=== PATIENT | female | born 1980 | race Caucasian/White ===

== ENCOUNTER 2023-09-14 14:06 | Emergency (ER) | payer BC ==
--- OUTSIDE RECORDS SUMMARY | 2023-09-14 14:08 | XMS REPORT | Continuity of Care Document ---
Author Name Unknown Address [address] [place] [address] [facility] thconnect Address 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 Role Phone Sravan Avilez Primary Care Physician + [phone] CHRETIEN_F Attending Clinician Unavailable Xu Lunsford Attending Clinician [phone] WATERS_S Attending Clinician Unavailable Magda Peña Attending Clinician [phone] Doctor Unassigned, [place] Attending Clinician U Pedro Crockett MD Attending Clinician [phone] PEDRO MEZA Attending Clinician Unavailable Marlee Scherer MA Attending Clinician Unavailsydney DORMAN Attending Clinician Unavailable Sheela Spears Attending Clinician [phone] Sukh Gutierrez MD Attending Clinician + [phone] SUKH GUTIERREZ Attending Clinician Young WILSON_F Admitting Clinician Unavailable WATERS_S Admitting Clinician Unavailable LAKIA Admitting Clinician Unavailable SUKH GUTIERREZ Admitting Clinician Young rucker Payers Payer Name Policy Type Policy Number Effective Date Expirati on Date Source [place] [id number] 2018 00:00:00 Problems Condition Name Condition Details Condition Category Status Onset Date Resolution Date Last Treatment Date Treating Clinician Comments Source Acute sinusitis Acute Sinusitis Problem Active 05-19 00:00: 00 [facility] Anxiety Anxiety Problem Active 10-15 00:00: 00 [facility] Transient hypertensi on Transient Hypertensi on Problem Active 10[facility]15 [facility] Herpes simplex Herpes Simplex Problem Active 09-14 00:00: 00 [facility] Multiple sclerosis Multiple Sclerosis Problem Active 09[facility]14 [facility] Chronic interstiti al cystitis Chronic Interstiti al Cystitis Problem Active 09-14 [facility]00[facility] [address] [facility] Demyelinat ing disease of central nervous system, unspecifie d Demyelinat ing disease of central nervous system, unspecifie d Disease Active 10-07 00:00: 00 [facility] Disturbanc e of skin sensation Disturbanc e of skin sensation Disease Active 10-07 00:00: 00 [facility] Neurogenic bladder Neurogenic bladder Disease Active 10-07 00:00: 00 [facility] Allergies, Adverse Reactions, Alerts Allergy Name Allergy Type Status Severity Reaction(s) Onset Date Inactive Date Treating Clinician Comments Source CLINDAMY ALAN DRUG INGREDI Active High Other-Cmnt 2020-05 00:00: 00 [facility] Clindamy alan Drug Allergy Active Other - See comments 2020-05 00:00: 00 Facial swelling [facility] NITROFUR ANTOIN DRUG INGREDI Active Unknown-Cmnt 10-25 00:00: 00 [facility] Nitrofur antoin Propensi ty to adverse reaction s Active Unknown - See comments 10-25 00:00: 00 Makes joints hurts, very nauseated , and extremely bloated, sometimes dizziness . [facility] Clindamy alan Allergy to substanc e Active Moderate to severe Facial swelling [facility] Social History Social Habit Start Date Stop Date Quantity Comments Source Alcohol intake 2021-04-06 00:00:00 2021-04-06 00:00:00 Ex-drinker (finding) [facility] Tobacco use and exposure 2021-04-03 00:00:00 2021-04-03 00:00:00 Never used [facility] Sex Assigned At 1980 00:00:00 1980 00:00:00 [facility] Smoking Status Start Date Stop Date Source Never smoker [facility] Medications Ordered Medication Name Filled Medication Name Start Date Stop Date Current Medication? Ordering Clinician Indication Dosage Frequency Signature (SIG) Comments Components Source Cholecalcif shanelle, Vitamin D3, 125 mcg (5,000 unit) capsule 2020-05 15:14: 13 Yes Take by mouth. [facility] vitamin C 100 mg tablet 2020-05 15:14: 13 Yes Take by mouth. [facility] ZINC SULFATE ORAL 2020-05 15:14: 13 Yes Take by mouth. [facility] Lisa Allergy Lisa Allergy No Lisa Allergy [facility] cefdinir 250 mg/5 mL oral suspension Take 6 mL twice a day by oral route as directed for 7 days. cefdinir 250 mg/5 mL oral suspension Take 6 mL twice a day by oral route as directed for 7 days. No 6mL BID cefdinir 250 mg/5 mL oral suspension Take 6 mL twice a day by oral route as directed for 7 days. [facility] Medrol (Brian) 4 mg tablets in a dose pack Take 1 dose pk by oral route as directed for 6 days. Medrol (Brian) 4 mg tablets in a dose pack Take 1 dose pk by oral route as directed for 6 days. No 1dose pk(s) Medrol (Brian) 4 mg tablets in a dose pack Take 1 dose pk by oral route as directed for 6 days. [facility] multivitami n multivitami n No multivitam in [facility] Vitamin D3 Vitamin D3 No Vitamin D3 [facility] diclofenac 1 % topical gel APPLY 2 GRAMS TO THE AFFECTED AREA(S) BY TOPICAL ROUTE 4 TIMES PER DAY diclofenac 1 % topical gel APPLY 2 GRAMS TO THE AFFECTED AREA(S) BY TOPICAL ROUTE 4 TIMES PER DAY No diclofenac 1 % topical gel APPLY 2 GRAMS TO THE AFFECTED AREA(S) BY TOPICAL ROUTE 4 TIMES PER DAY [facility] propranolol 20 mg tablet Take 1 tablet 3 times a day by oral route as needed. propranolol 20 mg tablet Take 1 tablet 3 times a day by oral route as needed. No 1 TID propranolo l 20 mg tablet Take 1 tablet 3 times a day by oral route as needed. [facility] Lisa Allergy Lisa Allergy No Lisa Allergy [facility] Augmentin 250 mg-62.5 mg/5 mL oral suspension Take 10 mL every 8 hours by oral route for 10 days. Augmentin 250 mg-62.5 mg/5 mL oral suspension Take 10 mL every 8 hours by oral route for 10 days. No 10mL Q8H Augmentin 250 mg-62.5 mg/5 mL oral suspension Take 10 mL every 8 hours by oral route for 10 days. [facility] multivitami n multivitami n No multivitam in [facility] omeprazole 40 mg capsule,del ayed release TAKE 1 CAPSULE BY MOUTH DAILY 30 MINUTES BEFORE MORNING MEAL NEEDED omeprazole 40 mg capsule,del ayed release TAKE 1 CAPSULE BY MOUTH DAILY 30 MINUTES BEFORE MORNING MEAL NEEDED No omeprazole 40 mg capsule,de layed release TAKE 1 CAPSULE BY MOUTH DAILY 30 MINUTES BEFORE MORNING MEAL NEEDED [facility] Vitamin D3 Vitamin D3 No Vitamin D3 [facility] Wegovy 0.25 mg/0.5 mL subcutaneou s pen injector Wegovy 0.25 mg/0.5 mL subcutaneou s pen injector No Wegovy 0.25 mg/0.5 mL subcutaneo us pen injector [facility] Immunizations Ordered Immunization Name Filled Immunization Name Date Status Comments Source SARS-COV-2 COVID-19 UNSPECIFIED VACCINE 2020-06-21 00:00:00 Completed [facility] SARS-COV-2 COVID-19 UNSPECIFIED VACCINE 2020-06-21 00:00:00 Completed [facility] SARS-COV-2 COVID-19 UNSPECIFIED VACCINE 2020-06-21 00:00:00 Completed [facility] SARS-COV-2 COVID-19 UNSPECIFIED VACCINE 2020-06-21 00:00:00 Completed [facility] SARS-COV-2 COVID-19 UNSPECIFIED VACCINE 2020-06-21 00:00:00 Completed [facility] SARS-COV-2 (COVID-19) vaccine, UNSPECIFIED SARS-COV-2 (COVID-19) vaccine, UNSPECIFIED 2020-06-21 00:00:00 Completed [facility] COVID-19 (SARS-COV-2) vaccine, unspecified COVID-19 (SARS-COV-2) vaccine, unspecified 2020-06-21 00:00:00 Completed [facility] COVID-19 (SARS-COV-2) vaccine, unspecified COVID-19 (SARS-COV-2) vaccine, unspecified 2020-06-21 00:00:00 Completed [facility] SARS-COV-2 COVID-19 UNSPECIFIED VACCINE 2020-05-21 00:00:00 Completed [facility] SARS-COV-2 COVID-19 UNSPECIFIED VACCINE 2020-05-21 00:00:00 Completed [facility] SARS-COV-2 COVID-19 UNSPECIFIED VACCINE 2020-05-21 00:00:00 Completed [facility] SARS-COV-2 COVID-19 UNSPECIFIED VACCINE 2020-05-21 00:00:00 Completed [facility] SARS-COV-2 COVID-19 UNSPECIFIED VACCINE 2020-05-21 00:00:00 Completed [facility] SARS-COV-2 (COVID-19) vaccine, UNSPECIFIED SARS-COV-2 (COVID-19) vaccine, UNSPECIFIED 2020-05-21 00:00:00 Completed [facility] COVID-19 (SARS-COV-2) vaccine, unspecified COVID-19 (SARS-COV-2) vaccine, unspecified 2020-05-21 00:00:00 Completed [facility] COVID-19 (SARS-COV-2) vaccine, unspecified COVID-19 (SARS-COV-2) vaccine, unspecified 2020-05-21 00:00:00 Completed [facility] COVID-19 (SARS-COV-2) vaccine, unspecified COVID-19 (SARS-COV-2) vaccine, unspecified Unknown Completed [facility] COVID-19 (SARS-COV-2) vaccine, unspecified COVID-19 (SARS-COV-2) vaccine, unspecified Unknown Completed [facility] Vital Signs Vital Name Observation Time Observation Value Comments S ource BP Diastolic 2023-05-19 00:00:00 84 mm[Hg] [facility] BP Systolic 2023-05-19 00:00:00 123 mm[Hg] [facility] Body Weight 2023-05-19 00:00:00 2780.8 [oz_av] [facility] BP Diastolic 2021-10-15 00:00:00 91 mm[Hg] [facility] Height 2021-10-15 00:00:00 66 [in_i] [facility] BMI (Body Mass Index) 2021-10-15 00:00:00 28.8 kg/m2 [facility] BP Systolic 2021-10-15 00:00:00 132 mm[Hg] [facility] Body Weight 2021-10-15 00:00:00 2857.6 [oz_av] [facility] BP Diastolic 2021-07-23 00:00:00 83 mm[Hg] [facility] Height 2021-07-23 00:00:00 66 [in_i] [facility] BMI (Body Mass Index) 2021-07-23 00:00:00 29.5 kg/m2 [facility] BP Systolic 2021-07-23 00:00:00 137 mm[Hg] [facility] Body Weight 2021-07-23 00:00:00 2924.8 [oz_av] [facility] Systolic blood pressure 2021-04-03 21:08:00 119 mm[Hg] [facility] Diastolic blood pressure 2021-04-03 21:08:00 82 mm[Hg] [facility] Heart rate 2021-04-03 21:08:00 71 /min [facility] Body temperature 2021-04-03 21:08:00 36.61 Karlene [facility] Respiratory rate 2021-04-03 21:08:00 18 /min [facility] Body height 2021-04-03 21:08:00 167.6 cm [facility] Body weight 2021-04-03 21:08:00 77.066 kg [facility] BMI 2021-04-03 21:08:00 27.42 kg/m2 [facility] BP Diastolic 2021-01-22 00:00:00 83 mm[Hg] [facility] Height 2021-01-22 00:00:00 66 [in_i] [facility] BMI (Body Mass Index) 2021-01-22 00:00:00 29.4 kg/m2 [facility] BP Systolic 2021-01-22 00:00:00 125 mm[Hg] [facility] Body Weight 2021-01-22 00:00:00 2918.4 [oz_av] [facility] Procedures Procedure Date / Time Performed Performing Clinicia n Source EXTERNAL PROVIDER RECORDS 2021-05-06 06:01:00 Doctor Unassigned, [place] [facility] EXTERNAL PROVIDER RECORDS 2021-04-21 06:01:00 Doctor Unassigned, [place] [facility] HIGH RISK HPV-THIN PREP 2021-04-03 21:54:00 Pedro Meza [facility] PAP SMEAR-LIQUID BASED-CP 2021-04-03 21:54:00 Pedro Meza [facility] Bilateral Tubal Ligation [facility] Section [facility] Ligation of Bilateral Fallopian Tubes [facility] Plan of Care Planned Activity Planned Date Details Comments Source Instructions [facility] Encounters Start Date/Time End Date/Time Encounter Type Admission Type Attending Clinicians Care Facility Care Department Encounter ID Source 2023-05-19 00:00:00 2023-05-19 00:00:00 Outpatient CHRETIEN_F [facility] [id number] [facility] 2023-05-19 00:00:00 2023-05-19 00:00:00 Rebeca GermanstanleyayshaPAMN-ANNUAL GIVING DIRECTOR-B C: [address], [address] [facility], [place] [address] , Ph. [facility] [id number] [facility] 2021-10-15 00:00:00 2021-10-15 00:00:00 Outpatient CHRETIEN_F [facility] [id number] [facility] 2021-10-15 00:00:00 2021-10-15 00:00:00 Outpatient Xu Lunsford [facility] [id number] 2021-10-15 00:00:00 2021-10-15 00:00:00 Xu Lunsford, DO: [address], [address] [place] [phone] , Ph. [facility] [id number] [facility] 2021-07-23 05:58:00 2021-07-23 05:58:00 Outpatient WATERS_S [facility] [id number] [facility] 2021-07-23 00:00:00 2021-07-23 00:00:00 Outpatient Magda Peña [facility] [id number] 2021-07-23 00:00:00 2021-07-23 00:00:00 Magda Peña APRN-SATURATOR-C: [address], [address] [place] [phone] , Ph. [facility] [id number] [facility] 2021-07-21 01:00:00 2021-07-21 01:00:00 Outpatient WATERS_S [facility] [id number] [facility] 2021-05-06 00:00:00 2021-05-06 00:00:00 Orders Only Doctor Unassigned, [place] [facility] [id number] [facility] 2021-04-28 00:00:00 2021-04-28 00:00:00 Telephone Derrick Pedro [facility] [id number] [facility] 2021-04-21 00:00:00 2021-04-21 00:00:00 Orders Only Doctor Unassigned, [place] [facility] [id number] [facility] 2021-04-18 00:00:00 2021-04-18 00:00:00 Outpatient R PEDRO MEZA [facility] [id number] [facility] 2021-04-07 00:00:00 2021-04-07 00:00:00 Telephone Derrick Pedro [facility] [id number] [id number] [facility] 2021-04-03 15:00:00 2021-04-03 15:58:29 Outpatient R PEDRO MEZA [facility] [id number] [facility] 2021-04-03 15:00:00 2021-04-03 15:58:29 Outpatient R PEDRO MEZA [facility] [id number] [facility] 2021-04-03 14:47:10 2021-04-03 15:58:29 Office Visit Derrick Pedro [facility] [id number] [id number] [id number] [facility] 2021-04-03 15:00:00 2021-04-03 15:00:00 Outpatient PEDRO PENA [facility] [id number] [facility] 2021-04-03 00:00:00 2021-04-03 00:00:00 Orders Only Doctor Unassigned, [place] [facility] 1..840.114 350.1.13.10 [id number] [id number] [facility] 2021-03-10 00:00:00 2021-03-10 00:00:00 Pre Visit Outreach Marlee Scherer 1..840.114 [id number] [id number] [id number] [facility] 2021-01-22 10:47:00 2021-01-22 10:47:00 Outpatient SCHAUBROECK _L [facility] [id number] [facility] 2021-01-22 00:00:00 2021-01-22 00:00:00 Outpatient Sheela Spears [facility] [id number] 2021-01-22 00:00:00 2021-01-22 00:00:00 Sheela kramer, AGNP-C: [address] [place] [address], [address], [place] [address] , Ph. [facility] [id number] [facility] 2020-09-19 10:20:00 2020-09-19 10:20:00 Outpatient SCHAUBROECK _L [facility] [id number] [facility] 2020-09-09 05:06:00 2020-09-09 05:06:00 Outpatient SCHAJULIANNROECK _L [facility] [id number] 2019-11-09 09:01:00 2019-11-09 23:59:00 Hospital Encounter Sukh Rhoades [place] [id number] [facility] 2019-11-09 08:59:30 2019-11-09 09:00:00 Outpatient R SUKH RHOADES [facility] [id number] [facility] 2019-11-09 08:59:00 2019-11-09 09:00:00 Hospital Encounter Sukh Rhoades [facility] [id number] [facility] Results Test Description Test Time Test Comments Results Resul t Comments Source SCR MAMM BILATERAL MACARIO CAD DIGITAL 2023-01-04 12:54:59 Name: Sheela : 1980 Sex: F - SCR MAMM BILATERAL MACARIO CAD DIGITALBILATERAL DIGITAL SCREENING MAMMOGRAM 3D/2D WITH CAD: 12/25/2022LINICAL: Asymptomatic. Digital breast tomosynthesis was performed in addition to routine CC and MLO views. Current mammographic images were evaluated by [employer] CAD (computer-aided detection) software. Comparison is made to exams dated 04/23/2021 mammogram and 12/29/2019 mammogram - [facility]. The tissue of both breasts is heterogeneously dense. This may lower the sensitivity of mammography. No suspicious mass, architectural distortion, malignant type calcification, or lymph node abnormality detected. Breast architecture is stable compared to prior exams.IMPRESSION: NEGATIVEThere is no mammographic evidence of malignancy. Resume annual screening mammography in one year. (12/26/2023) Alfonso Beckwith M.D. et/penrad:01/04/2023 12:54:59 Cabinet Builder: Mercy Geronimo MM, [facility] Mammographyletter sent: BIRADS 1-2 Normal Mammogram BI-RADS: 1 Negative
[2023-09-14 14:53] LABS: Absolute Eosinophils 0.3 K/uL (0-0.5); Absolute Lymphocytes (CBC) 1.7 K/uL (0.7-4.9); Absolute Monocytes 0.5 K/uL (0.1-1.3); Absolute Neutrophil 5.8 K/uL (1.8-8.0); Basophils % 0.5 % (0-1.3); Eosinophils % 3.9 % (0-4.4); Hematocrit 33.6 % (36.0-45.0); Lymphocytes % 20.6 % (15.3-44.8); MCH 25.6 pg (27.0-35.0); MCHC 32.8 g/dL (32.0-36.0); Monocytes % 5.7 % (3.3-12.3); Neutrophils % 69.3 % (41.7-73.7); Platelets 304 thou/uL (152-406); RBC Red Blood Cell Count 4.31 M/uL (3.86-4.86); Red Cell Distribution Width 14.2 % (12.1-15.2)
[2023-09-14 15:09] LABS: Anion Gap 7.8 mEq/L (5.0-15.0); Potassium 3.8 mEq/L (3.5-5.1)
--- NOTE | 2023-09-14 15:22 | RAD REPORT ---
EXAM DESCRIPTION: CT - Head Brain Wo Cont - 09/14/2023 3:00 pm CLINICAL HISTORY: HEADACHE Headache, drowsiness COMPARISON: Head angio dated 09/14/2023 TECHNIQUE: All CT scans are performed using dose optimization technique as appropriate and may inclu de automated exposure control or mA/KV adjustment according to patient size. FINDINGS: No intracranial hemorrhage, hydrocephalus or extra-axial fluid collection.No areas of brai n edema or evidence of midline shift. The paranasal sinuses and mastoids are clear. The calvarium is intact. IMPRESSION: No acute intracranial abnormality.
--- NOTE | 2023-09-14 15:23 | RAD REPORT ---
EXAM DESCRIPTION: CT - Head angio - 09/14/2023 3:00 pm CLINICAL HISTORY: HEADACHE Headache, drowsiness, CVA symptomology COMPARISON: No comparisons TECHNIQUE: CT angiography of the head was performed with MIPs. All CT scans are performed using dose optimization technique as appropriate and may include automated exposure control or mA/KV adjustment according to patient size. FINDINGS: No evidence of large vessel occlusion. No evidence of aneurysm is detected. No flow-limiti ng stenosis or vascular malformation identified. Antegrade flow is seen in the vertebral arteries. The vertebral arteries are codominant. The visualized dural venous sinuses are patent. IMPRESSION: No significant flow abnormality is detected.
--- NOTE | 2023-09-14 15:26 | RAD REPORT ---
EXAM DESCRIPTION: CT - Neck Angio - 09/14/2023 3:00 pm CLINICAL HISTORY: HONG Headache, drowsiness, CVA symptomology COMPARISON: No comparisons TECHNIQUE: CT angiography of the neck vessels was performed with MIPs. All CT scans are performed using dose optimization technique as appropriate and may include automated exposure control or mA/KV adjustment according to patient size. FINDINGS: A left aortic arch is identified with normal three vessel configuration of the great vesse ls. 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 Flow in the left subc lavian artery is a limited and may be related to flow reversal in the left vertebral artery. No significant flow abnormality is seen of the common carotid bilaterally. No significant stenosis is identified involving the cervical segments of both internal carotid arteri es. Normal flow is seen within both vertebral arteries. IMPRESSION: No significant flow abnormality of the neck vessels is identified. Proximal left subclavian artery appears occluded. The flow seen in the left subclavian artery may be related to reversal of flow in the left vertebral artery. Advise clinical correlation for the possibi lity of subclavian steal syndrome. NASCET criteria used. Mild 0-49% stenosis Moderate 50-69% stenosis Severe 70-99% stenosis
--- NOTE | 2023-09-14 17:39 | ER ---
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 Coronavirus screen: At this as6 time, the client does not indicate any symptoms associated with coronavirus-19. Ebola Screen: No symptoms or risks identified at this time. Initial Sepsis Screen: Does the patient meet any 2 criteria? No. Patient's initial sepsis screen is negative. Does the patient have a suspected source of infection? No. Patient's initial sepsis screen is negative. Risk Assessment: Do you want to hurt yourself or someone else? Patient reports no desire to harm self or others. Onset of symptoms was September 05, 2023. 14:13 Method Of Arrival: Ambulatory as6 14:13 Acuity: MATT 3 as6 Triage Assessment: 20:59 Pain: Pain currently is 5 out of 10 on a pain scale. Pain began gradually, Also cp4 complains of no other associated symptoms. 20:59 Headache History: The patient has had previous headaches and this one is similar to cp4 previous episodes. CAR SANDER: 14:15 LMP 07/2023, unknown as6 Historical: - Allergies: 14:15 Clindamycin; as6 - PMHx: 14:15 None; as6 - PSHx: 14:15 section; Ligation of fallopian tube; as6 - Immunization history:: Adult Immunizations up to date. - Infectious Disease History:: Denies. - Social history:: Smoking status: Patient denies any tobacco usage or history of. - Family history:: not pertinent. - Hospitalizations: : No recent hospitalization is reported. Screenin:46 [facility] ED Fall Risk Assessment (Adult) History of falling in the last 3 months, cp4 including since admission No falls in past 3 months (0 pts) Confusion or Disorientation No (0 pts) Intoxicated or Sedated No (0 pts) Impaired Gait No (0 pts) Mobility Assist Device Used No (0 pt) Altered Elimination No (0 pt) Score/Fall Risk Level 0 - 2 = Low Risk Oriented to surroundings, Maintained a safe environment, Assessed \T\ reinforced patient's understanding of fall precautions, Hourly rounding (assess needs \T\ fall precautionary measures) done. Abuse screen: Denies threats or abuse. Nutritional screening: No deficits noted. Tuberculosis screening: No symptoms or risk factors identified. Assessment: 14:46 General: Appears uncomfortable, Behavior is calm, cooperative, appropriate for age. cp4 Pain: Complains of pain in headache. Neuro: Reports headache since 9 days. Vital Signs: 14:13 BP 146 / 96; Pulse 101; Resp 18 S; Temp 98.8(TE); Pulse Ox 99% on R/A; Weight 77.56 kg as6 (R); Height 5 ft. 6 in. (R); Pain 5/10; 15:00 BP 110 / 56; Pulse 94; Resp 18; Pulse Ox 100% ; cp4 16:00 BP 119 / 61; Pulse 91; Resp 18; Pulse Ox 100% ; cp4 17:00 BP 145 / 82; Pulse 97; Resp 18; Pulse Ox 100% ; cp4 18:00 BP 148 / 92; Pulse 81; Resp 18; Pulse Ox 100% ; cp4 19:00 BP 146 / 89; Pulse 88; Resp 18; Pulse Ox 100% ; cp4 20:00 BP 148 / 90; Pulse 94; Resp 18; Pulse Ox 100% ; cp4 14:13 Body Mass Index 27.60 (77.56 kg, 167.64 cm) as6 14:13 Pain Scale: Adult as6 Tolu Coma Score: 15:44 Eye Response: spontaneous(4). Motor Response: obeys commands(6). Verbal Response: rn oriented(5). Total: 15. ED Course: 14:08 Patient arrived in ED. im 14:13 Anand Alfredo MD is Attending Physician. rn 14:15 Triage completed. as6 14:15 Arm band placed on. as6 14:21 Callie Campo is Primary Nurse. cp4 14:46 Bed in low position. Call light in reach. Side rails up X 1. Provided Education on: cp4 headache. 14:46 Basic Metabolic Panel Sent. cp4 14:46 CBC with Diff Sent. cp4 14:46 No provider procedures requiring assistance completed. Initial lab(s) drawn, by dc, cp4 sent to lab. Inserted saline lock: 20 gauge in right antecubital area, using aseptic technique. Blood collected. 15:02 CT Head Brain wo Cont In Process Unspecified. EDMS 15:[address] In Process Unspecified. EDMS 15:02 Neck Angio In Process Unspecified. EDMS 17:02 Upper Ext Artery Uni Josh In Process Unspecified. EDMS 17:[address] [facility]. bd 18:[address] Schneider with Dr. Alfredo. rv1 18:[address] Schneider to [facility] Rm 1505, Advised by Madelyn at [facility] to wait until rv1 after 1900 to call report due to shift change. 19:30 EMS to transfer pt, given 30 min ETA. rv1 20:58 Patient transferred, IV remains in place. cp4 Administered Medications: 17:46 Drug: Aspirin PO 325 mg PO once Route: PO; cp4 21:03 Follow up: Response: No adverse reaction cp4 Medication: 14:46 VIS not applicable for this client. cp4 Outcome: 17:39 ER care complete, transfer ordered by . rn 20:58 Transferred by ground EMS to [facility], Transfer form completed. cp4 X-rays sent w/ patient. 20:58 Condition: stable 20:58 Instructed on the need for transfer, 21:08 Patient left the ED. cp4 Signatures: Dispatcher [employer] EDMS DixonmeirDaniela Roman, MD MD rn Slawson, Ashby, RN RN as6 Villegas, Rebecca rv1 Danica Machado Christina cp4 Corrections: (The following items were deleted from the chart) 18:13 17:30 BP 145 / 82; Pulse 18bpm; Resp 97bpm; Pulse Ox 100%; cp4 cp4
--- NOTE | 2023-09-14 17:39 | EDPHYS ---
Physician Documentation [facility] Name: Sheela Stearns Age: 43 yrs Sex: Female : 1980 Arrival Date: 09/14/2023 Time: 14:06 Bed 10 Private MD: ED Physician Anand Alfredo HPI: 09/13 14:47 This 43 yrs old Female presents to ER via Ambulatory with complaints of Headache. rn 14:47 The patient complains of pain to the forehead. The patient describes the headache as rn aching. Onset: The symptoms/episode began/occurred 9 day(s) ago. Associated signs and symptoms: Pertinent negatives: altered mental status, fever, neck stiffness, rash, vision changes, vision loss, vomiting, weakness, vertigo. Severity of symptoms: At its worst the pain was moderate, in the emergency department the pain has improved. The symptoms are alleviated by nothing. the symptoms are aggravated by nothing. The patient has not experienced similar symptoms in the past. Patient reports headache for the last 9 days. Frontal headache, comes and goes, improves with medication returns. Denies history of headaches or migraines. No fever. No trauma. No focal neurological deficit. No vision changes. Called her PCP who called her and muscle relaxers after doing a video conference.. 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 - Infectious Disease History:: Denies. - Social history:: Smoking status: Patient denies any tobacco usage or history of. - Family history:: not pertinent. - Hospitalizations: : No recent hospitalization is reported. ROS: 14:50 Constitutional: Negative for fever, chills, and weight loss, Neck: Negative for injury, rn pain, and swelling, Cardiovascular: Negative for chest pain, palpitations, and edema, Respiratory: Negative for shortness of breath, cough, wheezing, and pleuritic chest pain, Abdomen/GI: Negative for abdominal pain, nausea, vomiting, diarrhea, and constipation, MS/Extremity: Negative for injury and deformity, Skin: Negative for injury, rash, and discoloration, Neuro: Positive for headache Exam: 14:50 Constitutional: This is a well developed, well nourished patient who is awake, alert, rn and in no acute distress. Head/Face: Normocephalic, atraumatic. Eyes: Pupils equal round and reactive to light, extra-ocular motions intact. Lids and lashes normal. Conjunctiva and sclera are non-icteric and not injected. Cornea within normal limits. Periorbital areas with no swelling, redness, or edema. Neck: Trachea midline, no masses palpated, and no cervical lymphadenopathy. Supple, full range of motion without nuchal rigidity, or vertebral point tenderness. No Meningismus. Cardiovascular: Tachycardic, regular. No pulse deficits. Respiratory: No increased work of breathing, no retractions or nasal flaring. MS/ Extremity: Pulses equal, no cyanosis. Neuro: Awake and alert, GCS 15, oriented to person, place, time, and situation. Cranial nerves II-XII grossly intact. Motor strength 5/5 in all extremities. Sensory grossly intact. Cerebellar exam normal. Normal gait. Vital Signs: 14:13 BP 146 / 96; Pulse 101; Resp 18 S; Temp 98.8(TE); Pulse Ox 99% on R/A; Weight 77.56 kg as6 (R); Height 5 ft. 6 in. (R); Pain 5/10; 15:00 BP 110 / 56; Pulse 94; Resp 18; Pulse Ox 100% ; cp4 16:00 BP 119 / 61; Pulse 91; Resp 18; Pulse Ox 100% ; cp4 17:00 BP 145 / 82; Pulse 97; Resp 18; Pulse Ox 100% ; cp4 18:00 BP 148 / 92; Pulse 81; Resp 18; Pulse Ox 100% ; cp4 19:00 BP 146 / 89; Pulse 88; Resp 18; Pulse Ox 100% ; cp4 20:00 BP 148 / 90; Pulse 94; Resp 18; Pulse Ox 100% ; cp4 14:13 Body Mass Index 27.60 (77.56 kg, 167.64 cm) as6 14:13 Pain Scale: Adult as6 Tolu Coma Score: 15:44 Eye Response: spontaneous(4). Motor Response: obeys commands(6). Verbal Response: rn oriented(5). Total: 15. MDM: 14:13 Patient medically screened. rn 15:44 Differential diagnosis: hypertensive headache, intracerebral hemorrhage, migraine, rn neoplasm, tension headache, trigeminal neuralgia, vasomotor headache. Data reviewed: vital signs, nurses notes, lab test result(s), radiologic studies, CT scan, and as a result, I will discharge patient. Counseling: I had a detailed discussion with the patient and/or guardian regarding the historical points, exam findings, and any diagnostic results supporting the discharge/admit diagnosis. 17:37 ED course: Per radiologist, ultrasound shows left subclavian occlusion with little to rn no flow distally in the radial artery and ulnar artery. Will transfer for higher level of care and vascular evaluation given pain and pulselessness of the left arm. Aspirin ordered.. 17:56 ED course: Accepted for transfer to [facility] for vascular evaluation. . rn 09/13 14:35 Order name: CBC with Diff; Complete Time: 15:00 rn 09/13 14:35 Order name: Basic Metabolic Panel; Complete Time: 15:23 rn 09/13 14:35 Order name: CT Head Brain wo Cont; Complete Time: 15:23 rn 09/13 14:35 Order name: Head Angio CT; Complete Time: 15:25 rn 09/13 14:41 Order name: Neck Angio; Complete Time: 15:34 EDWA 09/13 16:32 Order name: Upper Ext Artery Uni Josh; Complete Time: 17:48 EDWA 09/13 14:35 Order name: IV Start; Complete Time: 14:46 rn Administered Medications: 17:46 Drug: Aspirin PO 325 mg PO once Route: PO; cp4 21:03 Follow up: Response: No adverse reaction cp4 Disposition Summary: 09/14/23 17:39 Transfer Ordered Notes: Transfer Location: 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 EDMS EDMS 14:35 14:35 Head Angio+CT.RAD.BRZ ordered. EDMS EDMS 14:36 14:35 CBC+H.LAB.BRZ ordered. EDMS EDMS 14:36 14:35 BASIC METABOLIC PANEL+C.LAB.BRZ ordered. EDMS EDMS 15:49 15:47 Lower Extremity Artery Uni Ltd+US.RAD.BRZ ordered. EDMS EDMS 16:32 15:51 UPPER EXTREMITY VENOUS UNILATE ordered. EDMS EDMS 21:08 17:39 rn cp4
[2023-09-14] MEDS ORDERED: ASPIRIN 325 MG TAB ONE (17:40)
--- NOTE | 2023-09-14 17:41 | RAD REPORT ---
EXAM DESCRIPTION: US - Upper Ext Artery Uni Josh - 09/14/2023 5:02 pm CLINICAL HISTORY: eval for occlusion, possible at subclavian Left arm pain, diminished pulses. COMPARISON: No comparisons FINDINGS: The left upper extremity arterial system was interrogated with Doppler technique. Left com mon carotid artery shows low resistance waveform. Left subclavian artery shows reduced flow amplitude and velocity. Left axillary and brachial artery s how reduced amplitude and spectral broadening. Very little if any flow is detectable in the left ulna r and radial arteries. IMPRESSION: There is diminished flow seen to the left upper extremity arterial system. In particular , very little flow is detectable within the left radial and ulnar arteries. These findings would raymond elate with recent CT angiography findings suggesting subclavian steal syndrome is present.
[2023-09-14 21:14] VITALS: TEMP 98.8
[2023-09-14 21:44] VITALS: BP 148/90; O2SAT 100
== END 2023-09-14 21:08 | disposition short-term general hospital (02) ==
LOC: ER 14:06
DX: I82.B12 Acute embolism and thrombosis of left subclavian vein (principal); Z88.3 Allergy status to other anti-infective agents
CPT/HCPCS: 85025; 80048; 36415; 70450; 70496; 70498; 93931; Q9967; 99285

== ENCOUNTER 2023-12-27 14:26 | Emergency (ER) | payer BC ==
[2023-12-27 16:05] LABS: Absolute Basophils 0.1 K/uL (0-0.5); Absolute Eosinophils 0.9 K/uL (0-0.5); Absolute Lymphocytes (CBC) 2.1 K/uL (0.7-4.9); Absolute Monocytes 0.6 K/uL (0.1-1.3); Absolute Neutrophil 4.3 K/uL (1.8-8.0); Basophils % 0.8 % (0-1.3); Eosinophils % 11.1 % (0-4.4); Hemoglobin 10.8 g/dL (12.0-15.0); Lymphocytes % 26.3 % (15.3-44.8); MCH 27.5 pg (27.0-35.0); MCHC 33.7 g/dL (32.0-36.0); MCV 81.4 fL (80-100); MPV 7.3 fL (7.6-11.3); Monocytes % 7.1 % (3.3-12.3); Neutrophils % 54.7 % (41.7-73.7); Nucleated Red Blood Cells % 0.2 % (0-0); Platelets 312 thou/uL (152-406); RBC Red Blood Cell Count 3.93 M/uL (3.86-4.86); Red Cell Distribution Width 13.4 % (12.1-15.2)
[2023-12-27 16:16] LABS: PT Prothrombin Time 11.5 SECONDS (9.4-12.5); PTT, Activated Partial Thromb 33.9 SECONDS (24.3-36.9); Protime INR 1.03
[2023-12-27 16:19] LABS: Anion Gap 8.9 mEq/L (5.0-15.0); Potassium 3.9 mEq/L (3.5-5.1)
--- NOTE | 2023-12-27 17:10 | RAD REPORT ---
EXAM DESCRIPTION: CT - Chest For Pe Angio - 12/27/2023 4:49 pm CLINICAL HISTORY: Shortness of breath COMPARISON: None. TECHNIQUE: Dynamically enhanced axial 3 mm thick images of the chest were obtained during administra tion of 100 mL Isovue 370 IV contrast. Coronal and oblique reconstruction images were generated and r eviewed. Exam utilizes a protocol for optimal evaluation of pulmonary arterial tree. Maximum intensity projections 3D imaging was utilized All CT scans are performed using dose optimization technique as appropriate and may include automated exposure control or mA/KV adjustment according to patient size. FINDINGS: A pulmonary embolus is not seen. A thoracic aortic aneurysm is not noted. A pleural effusion is not seen. A pericardial effusion is not seen. A lung consolidation is not present. Portion of the [place] left subclavian artery is occluded. A graft has been placed between the distal left subclavian and left common carotid artery. IMPRESSION: Negative for a pulmonary embolism.
--- NOTE | 2023-12-27 17:12 | RAD REPORT ---
EXAM DESCRIPTION: USUpper Ext Artery Uni Bil12/27/2023 3:55 pm CLINICAL HISTORY: Left arm pain COMPARISON: None FINDINGS: Left subclavian arterial graft has been placed. The graft is patent. The left common carotid, left subclavian, left subclavian, left axillary, left brachial, left basilic , left ulnar and left radial arteries demonstrate triphasic and biphasic waveforms No significant stenosis/occlusion Doppler demonstrates good flow. Grayscale, color and spectral analysis performed on all vessels IMPRESSION: No significant vascular abnormality is displayed
--- NOTE | 2023-12-27 17:33 | ER ---
Nurse's Notes [facility] Name: Sheela Stearns Age: 43 yrs Sex: Female : 1980 Arrival Date: 12/27/2023 Time: 14:26 Bed 19 Private MD: Diagnosis: Dyspnea, unspecified;Vocal chord paralysis;Vocal cord paralysis Presentation: 12/26 15:00 Chief complaint: Patient states: Shortness of breath onset last week. Pt states that cm10 she had a bypass graft in October. Pt has thoracic outlet syndrome. PT states that she was seen at a clinic and had an x-ray done last week and it was normal. Coronavirus screen: Client denies travel out of the [place] in the last 14 days. At this time, the client does not indicate any symptoms associated with coronavirus-19. Ebola Screen: Patient denies travel to an Ebola-affected area in the 21 days before illness onset. No symptoms or risks identified at this time. Initial Sepsis Screen: Does the patient meet any 2 criteria? No. Patient's initial sepsis screen is negative. Does the patient have a suspected source of infection? No. Patient's initial sepsis screen is negative. Risk Assessment: Do you want to hurt yourself or someone else? Patient reports no desire to harm self or others. Onset of symptoms was December 27, 2023. 15:00 Method Of Arrival: Ambulatory cm10 15:00 Acuity: MATT 2 cm10 Triage Assessment: 15:05 General: Appears in no apparent distress. comfortable, Behavior is calm, cooperative. cm10 Neuro: No deficits noted. Level of Consciousness is awake, alert, obeys commands, Oriented to person, place, time, situation, Appropriate for age. Respiratory: No deficits noted. Airway is patent Respiratory effort is even, unlabored, Respiratory pattern is regular, symmetrical. 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 - Infectious Disease History:: Denies. - Social history:: Smoking status: Patient denies any tobacco usage or history of. - Family history:: not pertinent. - Hospitalizations: : No recent hospitalization is reported. Screenin:01 [facility] ED Fall Risk Assessment (Adult) History of falling in the last 3 months, nj1 including since admission No falls in past 3 months (0 pts) Confusion or Disorientation No (0 pts) Intoxicated or Sedated No (0 pts) Impaired Gait No (0 pts) Mobility Assist Device Used No (0 pt) Altered Elimination No (0 pt) Score/Fall Risk Level 0 - 2 = Low Risk Oriented to surroundings, Maintained a safe environment, Hourly rounding (assess needs \T\ fall precautionary measures) done. Abuse screen: Denies threats or abuse. Denies injuries from another. Nutritional screening: No deficits noted. Tuberculosis screening: No symptoms or risk factors identified. Assessment: 16:00 General: Appears in no apparent distress. comfortable, Behavior is calm, cooperative, nj1 appropriate for age. Pain: Denies pain. Neuro: Level of Consciousness is awake, alert, obeys commands, Oriented to person, place, time, situation. Cardiovascular: Patient's skin is warm and dry. Respiratory: Airway is patent Respiratory effort is even, unlabored. 16:56 Reassessment: Patient appears in no apparent distress at this time. Patient and/or kj2 family updated on plan of care and expected duration. Pain level reassessed. Patient is alert, oriented x 3, equal unlabored respirations, skin warm/dry/pink. Vital Signs: 15:00 BP 137 / 95; Pulse 86; Resp 16; Temp 98.6(O); Pulse Ox 97% on R/A; Weight 77.11 kg; cm10 Height 5 ft. 6 in. ; Pain 0/10; 16:59 BP 121 / 78; Pulse 72; Resp 20; Temp 98.6; Pulse Ox 100% on R/A; kj2 17:42 BP 122 / 82; Pulse 70; Resp 20; Temp 98.4; Pulse Ox 99% on R/A; kj2 15:00 Body Mass Index 27.44 (77.11 kg, 167.64 cm) cm10 15:00 Pain Scale: Adult cm10 ED Course: 14:29 Patient arrived in ED. mg5 14:56 Efrain Cox PA is PHCP. cp 14:56 Anand Alfredo MD is Attending Physician. cp 15:03 Triage completed. cm10 15:05 Arm band placed on Patient placed in an exam room, on a stretcher. cm10 15:50 Vivien Arita, RN is Primary Nurse. kj2 15:54 Inserted saline lock: 20 gauge in right antecubital area, using aseptic technique. nj1 Blood collected. Flushed with 10 mL NS. 15:57 Upper Ext Artery Uni Josh In Process Unspecified. EDMS 16:01 Patient has correct armband on for positive identification. Bed in low position. Call nj1 light in reach. Provided Education on: call light, fall precautions. 16:01 No provider procedures requiring assistance completed. nj1 16:51 CT Chest For PE Angio In Process Unspecified. EDMS 17:44 IV discontinued, intact, bleeding controlled, No redness/swelling at site. Pressure kj2 dressing applied. Administered Medications: No medications were administered Medication: 16:59 VIS not applicable for this client. kj2 Outcome: 17:33 Discharge ordered by . rn 17:43 Discharged to home ambulatory, kj2 17:43 Condition: stable 17:43 Discharge instructions given to patient, Instructed on discharge instructions, follow up and referral plans. Demonstrated understanding of instructions, follow-up care, 17:44 Patient left the ED. kj2 Signatures: Dispatcher [employer] EDSC Anand Alfredo MD MD rn Page, Corey, PA PA cp Lorena Davison RN RN nj1 Nehal Loco RN RN 10 Silvana Thompson mg5 Vivien Arita, RN RN kj2 Corrections: (The following items were deleted from the chart) 15:05 15:00 Acuity: MATT 3 cm10 cm10 15:05 15:04 PSHx: Bypass graft; cm10 cm10
--- NOTE | 2023-12-27 17:33 | EDPHYS ---
Physician Documentation [facility] Name: Sheela Stearns Age: 43 yrs Sex: Female : 1980 Arrival Date: 12/27/2023 Time: 14:26 Bed 19 Private MD: ED Physician Anand Alfredo HPI: 12/26 15:33 This 43 yrs old Female presents to ER via Ambulatory with complaints of Breathing rn Difficulty. 15:33 The patient has shortness of breath at rest, with light activity. rn 15:34 Onset: The symptoms/episode began/occurred 1 week(s) ago. The patient's shortness of rn breath is aggravated by exertion, light activity, is alleviated by nothing. Severity of symptoms: At their worst the symptoms were mild in the emergency department the symptoms are unchanged. The patient has not experienced similar symptoms in the past. Patient reports left subclavian artery bypass in October, passed swallow study at the time of the hospitalization but told had a paralyzed vocal cord. Reports has been getting physical therapy for it and slow improvement. Reports shortness of breath over the last week, at rest and with exertion. No chest pain. No hemoptysis. No productive cough. Told subclavian flow was approximately 50% at the time of discharge and should improve with time.. 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 - Infectious Disease History:: Denies. - Social history:: Smoking status: Patient denies any tobacco usage or history of. - Family history:: not pertinent. - Hospitalizations: : No recent hospitalization is reported. ROS: 15:34 Constitutional: Negative for fever, chills, and weight loss, Cardiovascular: Negative rn for chest pain, palpitations, and edema, Respiratory: Positive for shortness of breath Abdomen/GI: Negative for abdominal pain, nausea, vomiting, diarrhea, and constipation, MS/Extremity: Negative for injury and deformity, Skin: Negative for injury, rash, and discoloration, Neuro: Negative for headache, weakness, numbness, tingling, and seizure, Exam: 15:34 Constitutional: This is a well developed, well nourished patient who is awake, alert, rn and in no acute distress. Cardiovascular: Regular rate and rhythm. No pulse deficits. Respiratory: No increased work of breathing, no retractions or nasal flaring. Skin: No cyanosis MS/ Extremity: Pulses equal, no cyanosis. Neurovascular intact. Full, normal range of motion. Equal circumference. Equal cap refill compared bilateral hands and forearms Vital Signs: 15:00 BP 137 / 95; Pulse 86; Resp 16; Temp 98.6(O); Pulse Ox 97% on R/A; Weight 77.11 kg; cm10 Height 5 ft. 6 in. ; Pain 0/10; 16:59 BP 121 / 78; Pulse 72; Resp 20; Temp 98.6; Pulse Ox 100% on R/A; kj2 17:42 BP 122 / 82; Pulse 70; Resp 20; Temp 98.4; Pulse Ox 99% on R/A; kj2 15:00 Body Mass Index 27.44 (77.11 kg, 167.64 cm) cm10 15:00 Pain Scale: Adult cm10 MDM: 15:07 Patient medically screened. rn 17:30 Differential diagnosis: Anemia Anxiety Reaction Nasrin Leone tear, upper GI bleed, rn gastric ulcers. Data reviewed: vital signs, nurses notes, lab test result(s), radiologic studies, CT scan, and as a result, I will discharge patient. Counseling: I had a detailed discussion with the patient and/or guardian regarding the historical points, exam findings, and any diagnostic results supporting the discharge/admit diagnosis, the presence of at least one elevated blood pressure reading (>120/80) during this emergency department visit, lab results, radiology results, the need for outpatient follow up, to return to the emergency department if symptoms worsen or persist or if there are any questions or concerns that arise at home. Response to treatment: the patient's symptoms have markedly improved after treatment, and as a result, I will discharge patient. ED course: No acute findings and workup. Graft is patent and has triphasic and biphasic flow distally without an acute occlusion. CT chest negative for PE or infiltrate or pulmonary edema. Dyspnea after known vocal cord paralysis likely secondary to vocal cord paralysis without acute findings. Will follow-up with ENT and her vascular surgeon. Return precautions given and understood.. 12/26 15:15 Order name: CBC with Diff; Complete Time: 16:11 rn 12/26 15:15 Order name: Basic Metabolic Panel; Complete Time: 16:21 rn 12/26 15:15 Order name: Protime (+inr); Complete Time: 16:21 rn 12/26 15:15 Order name: Ptt, Activated; Complete Time: 16:21 rn 12/26 15:15 Order name: CT Chest For PE Angio; Complete Time: 17:15 rn 12/26 15:39 Order name: Upper Ext Artery Uni Josh; Complete Time: 17:15 EDMS 12/26 15:15 Order name: IV Start; Complete Time: 16:00 rn Administered Medications: No medications were administered Disposition Summary: 12/27/23 17:33 Discharge Ordered Notes: Location: Home rn Problem: an ongoing problem rn Symptoms: are unchanged rn Condition: Stable rn Diagnosis - Dyspnea, unspecified rn - Vocal chord paralysis rn - Vocal cord paralysis rn Followup: rn - With: Private Physician - When: As needed - Reason: Recheck today's complaints, Re-evaluation by your physician Discharge Instructions: - Discharge Summary Sheet rn - Shortness of Breath, Adult rn - Vocal Cord Paralysis rn Forms: - Medication Reconciliation Form rn - Antibiotic bottom turning lathe tender - Prescription Opioid Use rn - Patient Portal Instructions rn - Leadership Thank You Letter rn Signatures: Dispatcher [employer] EDMS Anand Alfredo MD MD rn Martinez, Clarissa, RN RN cm10 Corrections: (The following items were deleted from the chart) 15:05 15:04 PSHx: Bypass graft; cm10 cm10 15:15 15:15 CBC+H.LAB.BRZ ordered. EDMS EDMS 15:15 15:15 BASIC METABOLIC PANEL+C.LAB.BRZ ordered. EDMS EDMS 15:15 15:15 PROTIME (+INR)+COAG.LAB.BRZ ordered. EDMS EDMS 15:15 15:15 PTT, ACTIVATED+COAG.LAB.BRZ ordered. EDMS EDMS 15:15 15:15 Lower Extremity Artery Uni Ltd+US.RAD.BRZ ordered. EDMS EDMS
[2023-12-27 18:19] VITALS: BP 122/82; TEMP 98.4; O2SAT 99
== END 2023-12-27 17:44 | disposition home or self-care (01) ==
LOC: ER 14:26
DX: R06.00 Dyspnea, unspecified (principal); J38.00 Paralysis of vocal cords and larynx, unspecified; Z95.1 Presence of aortocoronary bypass graft
CPT/HCPCS: 85025; 80048; 36415; 85610; 85730; 71275; 93931; 99284; Q9967